=== PATIENT | female | born 1980 | race Hispanic/Latino ===

== ENCOUNTER 2017-12-31 11:30 | Outpatient (AMBR) | payer OTHER, SELFPAY ==
--- NOTE | 2017-12-03 15:15 | PT.OIERPT ---
PT OP Initial Eval Patient Information Visit Reasons: pain in right ankle Medical Diagnosis: M25.571 S82.851D Treatment Dx #1: R ankle pain Treatment Dx #2: Decreased R ankle ROM Start of Care: 12/03/17 Date of Onset: 10/05/17 Initial Assessment Subjective Pt is 37 yr old female s/p R ankle displaced trimalleolar FX on 10/05 with ORIF on 10/17. She had a cast until 11/24 and now is ambulating in CAM boot. Pain level today is 6/10 and she is taking pain meds to control pain. [facility] [employer]. PMH: none reported Imaging: X-rays with provider Pt goal: to walk and get back to normal Objective R ankle AROM: DF: -10 Plantarflexion: to 45 deg Inv/Eversion 15 deg Strength: Ankle DF 3-/5, PF: 3-/5 TTP: anterior TC joint Sensation: intact to light touch of R foot Figure 8: 51 cm Gait: antalgic with boot Assessment Pt presentation consistent with referring Dx. Pt has limited ankle DF ROM and gastroc tightness with decreased ankle strength. Pt has stiff forefoot and hindfoot PROM and edema about anterior TCJ. Pt has good rehab potential. Pt will be weaned from boot as tolerated in 2-3 weeks from date of order. Eval followed by HEP. Short Term and [facility] Goals 1. Ind with HEP 2. Improved ankle DF to 10 deg and PF to 50 deg 3. Improved ankle strength to 4/5 in all planes 4. Pt will heel raise x10 with <=2/10 pain 5. Pt will ambulate with symmetrical gait pattern community distances and no assistive device. Treatment Plan Pt requires skilled therapy for 2x a week for 8 weeks in order to improve ROM, strength and gait. 1. Manual therapy 2. Therex 3. Modalities as indicated, moist heat, ice, estim Frequency and Duration 2x a week for 8 weeks Certification Dates: 12/03/17 to 03/05/18 Office Procedures PT Procedures PT Date of Service: 12/03/17 OP PT Eval Mod Complex 30 minutes: Yes
--- NOTE | 2017-12-03 15:19 | PTNOTE_ITS ---
PT OP Initial Eval Patient Information Visit Reasons: pain in right ankle Medical Diagnosis: M25.571 S82.851D Treatment Dx #1: R ankle pain Treatment Dx #2: Decreased R ankle ROM Start of Care: 12/03/17 Date of Onset: 10/05/17 Initial Assessment Subjective Pt is 37 yr old female s/p R ankle displaced trimalleolar FX on 10/05 with ORIF on 10/17. She had a cast until 11/24 and now is ambulating in CAM boot. Pain level today is 6/10 and she is taking pain meds to control pain. She works here at [employer]. PMH: none reported Imaging: X-rays with provider Pt goal: to walk and get back to normal Objective R ankle AROM: DF: -10 Plantarflexion: to 45 deg Inv/Eversion 15 deg Strength: Ankle DF 3-/5, PF: 3-/5 TTP: anterior TC joint Sensation: intact to light touch of R foot Figure 8: 51 cm Gait: antalgic with boot Assessment Pt presentation consistent with referring Dx. Pt has limited ankle DF ROM and gastroc tightness with decreased ankle strength. Pt has stiff forefoot and hindfoot PROM and edema about anterior TCJ. Pt has good rehab potential. Pt will be weaned from boot as tolerated in 2-3 weeks from date of order. Eval followed by [facility]P. [facility] Goals 1. Ind with HEP 2. Improved ankle DF to 10 deg and PF to 50 deg 3. Improved ankle strength to 4/5 in all planes 4. Pt will heel raise x10 with <=2/10 pain 5. Pt will ambulate with symmetrical gait pattern community distances and no assistive device. Treatment Plan Pt requires skilled therapy for 2x a week for 8 weeks in order to improve ROM, strength and gait. 1. Manual therapy 2. Therex 3. Modalities as indicated, moist heat, ice, estim Frequency and Duration 2x a week for 8 weeks Certification Dates: 12/03/17 to 03/05/18 Office Procedures PT Procedures PT Date of Service: 12/03/17 OP PT Eval Mod Complex 30 minutes: Yes
--- NOTE | 2017-12-05 12:50 | PT.ODAYNRPT ---
PT Outpatient Daily Note Date of Service: December 05, 2017 OP Daily Note Visit Reasons: pain in right ankle Outpatient Physical Therapy Treatment Date: 12/05/17 Subjective: About the same as time of evaluation Objective: See F/S for therex MT: STM to ankle, manual ankle stretches into all planes, incision mobilization x10' Assessment: Improved A/PROM into DF/PF after manual therapy today. Capsular tightness and edema limits ROM. Plan: Continue per POC Length of Time (minutes) of Treatment: 30 Minutes Office Procedures PT Procedures PT Date of Service: 12/03/17 OP PT Eval Mod Complex 30 minutes: Yes PT Procedures PT Date of Service: 12/05/17 Therapeutic Exercise 15 minutes: Yes Manual Photographer Portrait 15 minutes: Yes
--- NOTE | 2017-12-11 13:38 | PT.ODAYNRPT ---
PT Outpatient Daily Note Date of Service: December 11, 2017 OP Daily Note Visit Reasons: pain in right ankle Outpatient Physical Therapy Treatment Date: 12/11/17 Subjective: pt reports walking around without the boots at times and does well. pt denies pain upon visit as it has been getting better. pt states she does STM at home as well. Objective: see flow sheet. Assessment: pt added resistance on the bike to 3 level and tolerated well. pt did have difficulty with rocker board exercises due to limited mobility. with AROM exercises she does great but not when using the boards. STM to the medial incision noted tightness rather than on the lateral incision.. noted no difficulty with calf stretch as she did well with good knee extension and DF. Plan: continue POC per PT. Length of Time (minutes) of Treatment: 30 Minutes Office Procedures PT Procedures PT Date of Service: 12/03/17 OP PT Eval Mod Complex 30 minutes: Yes PT Procedures PT Date of Service: 12/05/17 Therapeutic Exercise 15 minutes: Yes Manual Forestry Consultant 15 minutes: Yes PT Procedures PT Date of Service: 12/11/17 Therapeutic Exercise 30 minutes: Yes
--- NOTE | 2017-12-15 11:33 | PTNOTE_ITS ---
PT Outpatient Daily Note Date of Service: December 15, 2017 OP Daily Note Visit Reasons: pain in right ankle Outpatient Physical Therapy Treatment Date: 12/15/17 Subjective: pt doing well today upon visit. as she was not wearing the boot and did well without it this weekend. pt states she will return to work soon and will not be wearing the boot. Objective: see flow sheet. Assessment: pt walked in sandals and no boot in which did not demonstrate difficulties. added new exercises with balance. pt was a little unsteady with foam pad but can improve with time. pt had difficulty with DF using the wobble board. pt can ambulate all day and denies pain and discomfort. Plan: continue POC per PT. Length of Time (minutes) of Treatment: 30 Minutes Office Procedures PT Procedures PT Date of Service: 12/03/17 OP PT Eval Mod Complex 30 minutes: Yes PT Procedures PT Date of Service: 12/15/17 Therapeutic Exercise 30 minutes: Yes PT Procedures PT Date of Service: 12/05/17 Therapeutic Exercise 15 minutes: Yes Manual Financial Retirement Plan Specialist 15 minutes: Yes PT Procedures PT Date of Service: 12/11/17 Therapeutic Exercise 30 minutes: Yes
--- NOTE | 2017-12-24 12:27 | PT.ODAYNRPT ---
PT Outpatient Daily Note Date of Service: December 24, 2017 OP Daily Note Visit Reasons: pain in right ankle Outpatient Physical Therapy Treatment Date: 12/24/17 Subjective: Walking without boot, swelling in the morning that resolves with movement. Objective: See F/S for therex MT: mobs with strap to increase ankle DF x5, STM to R ankle x10' total Assessment: Good progress with therapy goals with low tissue irritability and improving exercise tolerance. SL balance challenged by decreased balance reactions. Plan: Continue per POC Length of Time (minutes) of Treatment: 30 Minutes Office Procedures PT Procedures PT Date of Service: 12/03/17 OP PT Eval Mod Complex 30 minutes: Yes PT Procedures PT Date of Service: 12/15/17 Therapeutic Exercise 30 minutes: Yes PT Procedures PT Date of Service: 12/24/17 Therapeutic Exercise 15 minutes: Yes Manual Rvda Master Certified Rv Technician 15 minutes: Yes PT Procedures PT Date of Service: 12/05/17 Therapeutic Exercise 15 minutes: Yes Manual Rvda Master Certified Rv Technician 15 minutes: Yes PT Procedures PT Date of Service: 12/11/17 Therapeutic Exercise 30 minutes: Yes
--- NOTE | 2017-12-29 12:30 | PT.ODAYNRPT ---
PT Outpatient Daily Note Date of Service: December 29, 2017 OP Daily Note Visit Reasons: pain in right ankle Outpatient Physical Therapy Treatment Date: 12/29/17 Subjective: Walked all day Friday with minimal soreness. Objective: See F/S for therex MT: STM to R ankle x10' total Assessment: Good progress with therapy goals with low tissue irritability and improving exercise tolerance. SL balance challenged by decreased balance reactions. Plan: Continue per POC Length of Time (minutes) of Treatment: 30 Minutes Office Procedures PT Procedures PT Date of Service: 12/03/17 OP PT Eval Mod Complex 30 minutes: Yes PT Procedures PT Date of Service: 12/15/17 Therapeutic Exercise 30 minutes: Yes PT Procedures PT Date of Service: 12/24/17 Therapeutic Exercise 15 minutes: Yes Manual [place] 15 minutes: Yes PT Procedures PT Date of Service: 12/29/17 Therapeutic Exercise 30 minutes: Yes PT Procedures PT Date of Service: 12/05/17 Therapeutic Exercise 15 minutes: Yes Manual [place] 15 minutes: Yes PT Procedures PT Date of Service: 12/11/17 Therapeutic Exercise 30 minutes: Yes
--- NOTE | 2017-12-31 12:21 | PTNOTE_ITS ---
PT Outpatient Daily Note Date of Service: December 31, 2017 OP Daily Note Visit Reasons: pain in right ankle Outpatient Physical Therapy Treatment Date: 12/31/17 Subjective: Some leg and calf soreness after last visit attributed to squats. Objective: See F/S for therex Assessment: Good progress with therapy goals with low tissue irritability and improving exercise tolerance. SL balance challenged by decreased balance reactions. Plan: Continue per POC Length of Time (minutes) of Treatment: 30 Minutes Office Procedures PT Procedures PT Date of Service: 12/03/17 OP PT Eval Mod Complex 30 minutes: Yes PT Procedures PT Date of Service: 12/15/17 Therapeutic Exercise 30 minutes: Yes PT Procedures PT Date of Service: 12/24/17 Therapeutic Exercise 15 minutes: Yes Manual Platform Power Technician 15 minutes: Yes PT Procedures PT Date of Service: 12/29/17 Therapeutic Exercise 30 minutes: Yes PT Procedures PT Date of Service: 12/05/17 Therapeutic Exercise 15 minutes: Yes Manual Platform Power Technician 15 minutes: Yes PT Procedures PT Date of Service: 12/11/17 Therapeutic Exercise 30 minutes: Yes PT Procedures PT Date of Service: 12/31/17 Therapeutic Exercise 30 minutes: Yes
== END 2017-12-31 12:30 | disposition home or self-care (01) ==
PROVIDERS: Visit Provider Podiatrist Foot & Ankle Surgery
DX: M25.571 Pain in right ankle and joints of right foot (principal)
CPT/HCPCS: 97110; 97140; 97162